=== PATIENT | male | born 1995 | race African-American/Black ===

== ENCOUNTER 2016-05-30 17:26 | Emergency (ER) | payer OTHER ==
[~2016-05-30] VITALS: Ht 182.9 cm; Wt 86.5 kg
[2016-05-30 17:29] VITALS: Ht 182.9 cm; Wt 86.5 kg
[2016-05-30] MEDS ORDERED: LIDOCAINE/EPINEPHRINE 1% 20 ML VIAL INFIL ONE (17:45)
--- NOTE | 2016-05-30 18:04 | DIAGNOSTIC IMAGING REPORT ---
LEFT FOREARM 2 VIEWS ROUTINE CLINICAL HISTORY: Left arm pain status post trauma. Soft tissue laceration COMPARISON: None. DISCUSSION: No fractures are visualized. There is a prominent soft tissue injury involving the ulnar aspect of the forearm at the junction of the middle and distal one third. No radiopaque foreign bodies are evident IMPRESSION: Soft tissue injury. No acute fractures. No radiopaque foreign bodies are visualized. Electronically signed by: Ten Cannon M.D. 05/30/2016 6:02 PM Dictated Date/Time: 05/30/2016 6:02 PM
[2016-05-30 18:26] LABS: BUN/CREATININE RATIO 6.3 (10-20); CALCIUM 8.6 mg/dl (8.5-10.1); CREATININE 1.4 mg/dl (0.60-1.40); POTASSIUM 3.9 mmol/L (3.5-5.1)
[2016-05-30] MEDS ORDERED: CEPHALEXIN 500MG HOME PACK 1 EA BTL PO ONE (19:15)
--- NOTE | 2016-05-30 19:29 | EMERGENCY ROOM VISIT NOTE ---
History First contact with patient: 17:32 Chief Complaint: LACERATION/CUT (SUT/DERMABOND) Stated Complaint: FALL, LEFT ARM LACERATION History of Present Illness The patient is a 21 year old male who presents to the Emergency Room via BLS with complaints of a fall which occurred just prior to arrival. The patient reports that he was drinking alcohol today and stumbled and fell, falling through a window which broke. He suffered several lacerations to both of his arms. He states there is a deep laceration on the left arm. The patient denies hitting his head or any other injuries. He reports his tetanus is up-to- date. He rates his current discomfort a 1/10. He denies any numbness or weakness of his upper extremities. He denies any headache, neck pain, chest pain, shortness of breath or abdominal pain. Review of Systems A complete 10-point Review of Systems was discussed with the patient, with pertinent positives and negatives listed in the History of Present Illness. All remaining Review of Systems questions can be considered negative unless otherwise specified. Social History Smoking Status: Never Smoker Current/Historical Medications Scheduled Cephalexin Monohydrate (Keflex), 500 MG PO QID Allergies Coded Allergies: No Known Allergies (Unverified , 05/30/16) Physical Exam Vital Signs Date Time Temp Pulse Resp B/P Pulse Ox O2 Delivery O2 Flow Rate FiO2 05/30/16 19:55 68 18 126/80 98 Room Air 05/30/16 18:55 95 18 139/72 97 05/30/16 17:29 101 18 147/90 99 Room Air Physical Exam VITALS: Vitals are noted on the nurse's note and reviewed by myself. Vital signs stable. GENERAL: This is a 21-year-old male, in no acute distress but does appear intoxicated, smells of EtOH, well-developed well-nourished. SKIN: Capillary reflex less than 2 seconds. HEENT: Normocephalic. PERRLA. EOMI. Nares patent. Mucous membranes moist. Neck is supple without nuchal rigidity. HEART: Regular rate and rhythm without murmurs gallops or rubs. LUNGS: Clear to auscultation bilaterally without wheezes, rales or rhonchi. MUSCULOSKELETAL: There is a 9 cm curved laceration to the medial aspect of the left forearm. The edges gape widely apart. There are no tendons or significant vessels seen in the base of the wound. There is no exposed bone. There are no foreign bodies in the base of the wound. Full range of motion of the left upper externally. Strength 5/5. NEURO: Patient was alert and oriented to person place and time. Normal sensation to light and sharp touch. Medical Decision & Procedures ER Provider Diagnostic Interpretation: LEFT FOREARM 2 VIEWS ROUTINE CLINICAL HISTORY: Left arm pain status post trauma. Soft tissue laceration COMPARISON: None. DISCUSSION: No fractures are visualized. There is a prominent soft tissue injury involving the ulnar aspect of the forearm at the junction of the middle and distal one third. No radiopaque foreign bodies are evident IMPRESSION: Soft tissue injury. No acute fractures. No radiopaque foreign bodies are visualized. Laboratory Results 05/30/16 17:59 Test 05/30/16 17:59 Anion Gap 9.0 mmol/L (3-11) Est Creatinine Clear Calc Drug Dose 91.6 ml/min Estimated GFR () 82.7 Estimated GFR (Non- 71.3 BUN/Creatinine Ratio 6.3 (10-20) Calcium Level 8.6 mg/dl (8.5-10.1) Ethyl Alcohol mg/dL 272.0 mg/dl (0-3) Medications Administered Medications (Trade) Dose Ordered Sig/Rebekah Route Start Time Stop Time Status Last Admin Dose Admin Cephalexin Monohydrate (Keflex 500MG Home Pack) 1 homepack NOW ONCE PO 05/30/16 19:15 05/30/16 19:16 DC 05/30/16 19:27 1 HOMEPACK Procedure Verbal consent was obtained to perform the procedure. Using sterile technique the wound was cleaned with Betadine. The area was sterilely draped. 10 ml of 1 % buffered lidocaine with epinephrine was used to anesthetize the laceration. Once the patient was anesthetized, the wound was copiously irrigated under pressure with sterile saline. The wound was explored and there were no deep structures injured such as tendons, bone, or significant blood vessels. The laceration was repaired using 17 simple interrupted 4-0 nylon sutures with the wound edges being well approximated. The patient tolerated the procedure well. Hemostasis was achieved. The area was cleaned with sterile saline and dressed with bacitracin ointment and bandage. Medical Decision The patient was evaluated as above. X-ray performed was performed to rule out foreign body and showed no acute findings. Laceration repair was performed as noted in the procedure note. The patient was visibly intoxicated on arrival. Medical alcohol level was drawn and was 272. The patient was alert and oriented throughout his stay. He did have a sober friend who was willing to take was possibility for the patient and take him home. The patient was placed on Keflex prophylactically. Suture care instructions were discussed with the patient. He verbalized understanding and was discharged home in good condition. Impression Primary Impression: Laceration of left forearm Departure Information Dispostion Home / Self-Care Condition GOOD Prescriptions Cephalexin Monohydrate (Keflex) 500 Mg Cap 500 MG PO QID for 7 Days, #28 CAP Prov: Gwendolyn Dudley ., TERRA 05/30/16 Referrals No Doctor, Assigned (PCP) Forms HOME CARE DOCUMENTATION FORM, IMPORTANT VISIT INFORMATION Patient Instructions My [facility] Additional Instructions You were prescribed Keflex to be taken 4 times daily as prescribed. This is an antibiotic. All antibiotics have the potential to cause diarrhea. Stop this medication and contact a medical provider if you were to develop any significant adverse side effects including: wheezing, shortness of breath, passing out, vomiting, or a diffuse rash. Always take antibiotics as directed and COMPLETE the ENTIRE course regardless of the improvement of your symptoms. Do NOT drink anymore alcohol today. Rest and drink plenty of fluids when you get home. You have received 17 sutures on your arm. These sutures are NOT dissolvable and WILL need to be removed by a health care provider in 12-14 days. You can return to the Emergency Department or contact your Primary Care Provider to have the sutures removed. Proper wound care is essential for adequate wound healing and infection prevention. You can shower and clean the wound with soap and water. Do not scour over the wound, pat dry with a towel. Do not submerse the wound (i.e. bathe or dish wash) until the sutures have been removed. You can use an antibiotic ointment with a dressing over the wound for the next 3-4 days. After this time you may leave the wound dry and open to the air. If crust develops over the wound you can use a Q-tip to apply a 1:1 peroxide:water solution to clean the wound. Look for signs of infection of the wound including: increased pain, swelling, foul discharge, streaking, or increased temperature. If any of these are noticed you should return to the Emergency Department for further assessment and treatment. As with any laceration you may have received nerve damage to the surrounding tissues. This damage may or may not be permanent. You should keep the area covered with sunscreen for the first 6 months to 1 year when at risk for exposure to help minimize scarring. You can also use scar reducing creams or Vitamin E oil to help minimize scarring. For pain control, you can use the following [id number] medicines (if >12 yo): - Regular strength (325mg/tab) Tylenol (acetaminophen) 2 tabs every 4-6 hours as needed. Do not exceed 12 tablets in a 24 hour period. Avoid taking more than 4 grams (4000 mg) of Tylenol per day. This includes any other sources of acetaminophen you may take on a regular basis. - Regular strength (200 mg/tab) Advil (ibuprofen) 1-2 tabs every 4-6 hours as needed. Do not exceed a dose of 3200 mg per day. Return to the emergency department if your symptoms worsen despite treatment course outlined above. Problem Qualifiers Primary Impression: Laceration of left forearm Encounter type: initial encounter Qualified Codes: S51.812A - Laceration without foreign body of left forearm, initial encounter
[2016-05-30] MEDS ORDERED: CEPH500C PO (19:37)
[2016-05-30 19:55] VITALS: BP 126/80; PULSE 68; O2SAT 98
== END 2016-05-30 19:56 | disposition home or self-care (01) ==
LOC: C.EDA 17:30
DX: S51.812A Laceration without foreign body of left forearm, initial encounter (principal); W01.110A Fall on same level from slipping, tripping and stumbling with subsequent striking against sharp glass, initial encounter